=== PATIENT | female | born 1945 | race Caucasian/White ===

== ENCOUNTER 2017-08-30 00:19 | Inpatient (IN) | payer MEDICARE, BC ==
[2017-08-29 15:15] LABS: INR 1.02
[~2017-08-30] VITALS: Ht 149.9 cm; Wt 61.7 kg
[2017-08-30] VITALS (13 sets, daily range): BP systolic 98–157; BP diastolic 63–98
[~2017-08-30 00:19] MED LIST: ASCO100T15 PO; ASPI-816 PO; CALC500T6 PO; CHOL200074 PO; CIPR-344 PO; DIPH-1 PO; ESTR-26 PO; FAMO20TA28 PO; GLUC-198 PO; KRIL500C2 PO; LEVO75TA73 PO; LOSA50TA72 PO; LUTE20CA11 PO; MULT1TAB64 PO; OLME20TA PO; SPIR50TA31 PO; TRANEXAMIC AC 1000 MG/10ML SDV 1,000 MG in DEXTROSE 5% 50 ML BAG 50 ML IV ONE; VIT1CAPS29 PO; VITA-131 PO; [UNRECOGNIZED DRUG - CODE] PO
[2017-08-30] MEDS ORDERED: FAMOTIDINE 20 MG TAB PO ONE (08:20)
[2017-08-30] MEDS ORDERED: GELATIN SPONGE 12-7MM ONE (08:50)
[2017-08-30] MEDS ORDERED: THROMBIN TOP SOLN 5000INTLU VL ONE (08:50)
[2017-08-30] MEDS ORDERED: PROPOFOL EMUL(*) 10MG/ML 20 ML 40 ML ONE (08:51)
[2017-08-30] MEDS ORDERED: LIDOCAINE MPF 1% 5 ML VIAL ONE (08:51)
[2017-08-30] MEDS ORDERED: ONDANSETRON 4 MG/2 ML VIAL ONE ×2 (08:51→12:32)
[2017-08-30] MEDS ORDERED: DEXAMETHASONE SOD PHOS 10MG/ML ONE (08:51)
[2017-08-30] MEDS ORDERED: VANCOMYCIN(*) 1 GM VIAL 1 GM in NS(*) 0.9% 250 ML BAG 250 ML IVPB ONE (09:10)
[2017-08-30] MEDS ORDERED: ROCURONIUM BROM 10 MG/ML 10 ML ONE (09:54)
[2017-08-30] MEDS ORDERED: SUCCINYLCHOL CHL 100MG/5ML SYR IVP ONE (10:00)
[2017-08-30] MEDS ORDERED: PHENYLEPHRINE/NS/PF 0.4MG/10ML ONE (10:00)
[2017-08-30] MEDS ORDERED: fentaNYL CITR 100 MCG/2 ML AMP ONE ×3 (10:04→12:18)
[2017-08-30] MEDS ORDERED: LIDOCAINE/SOD BICARB 8.4% SYR ID ONE (10:35)
[2017-08-30] MEDS ORDERED: cloNIDine EPIDUR INJ 100MCG/ML 40 MCG, ROPIVACAINE 0.5% 20 ML VIAL 25 ML, EPINEPHrine H... INJ ONE (10:35)
[2017-08-30] MEDS ORDERED: NORMOSOL R SOLN(*) 1000 ML BAG 1,000 ML IV PRN (10:35)
[2017-08-30] MEDS ORDERED: MIDAZOLAM 2 MG/2 ML VIAL IVP PRN (10:35)
[2017-08-30] MEDS ORDERED: ceFAZolin 1 GM VIAL IVP ONE (10:35)
[2017-08-30] MEDS ORDERED: TRANEXAMIC AC 1000 MG/10ML SDV 1,000 MG in DEXTROSE 5% 50 ML BAG 50 ML IV ONE ×2 (10:35→10:40)
[2017-08-30] MEDS ORDERED: LACTATED RINGER 3000 ML BAG IR ONE (11:15)
[2017-08-30] MEDS ORDERED: SUGAMMADEX SOD 200 MG/2 ML SDV ONE (11:34)
[2017-08-30] MEDS ORDERED: ceFAZolin(*) 1 GM VIAL 1 GM in NS(*) 0.9% 100 ML ADDVANT BAG 100 ML IVPB ONE (11:35)
[2017-08-30] MEDS ORDERED: ONDANSETRON 4 MG/2 ML VIAL IVP PRN (12:10)
[2017-08-30] MEDS ORDERED: diphenhydrAMINE 25 MG CAP PO PRN (12:10)
[2017-08-30] MEDS ORDERED: KCL/D5LR 20 MEQ/1000 ML PREMIX 1,000 ML IV PRN (12:10)
[2017-08-30] MEDS ORDERED: NALOXONE HCL 0.4 MG/ML VIAL IVP PRN (12:10)
[2017-08-30] MEDS ORDERED: PROMETHAZINE 25 MG/ML 1 ML AMP IVP PRN (12:10)
[2017-08-30] MEDS ORDERED: FLUSH 10 ML SYR IVP PRN (12:10)
[2017-08-30] MEDS ORDERED: MORPHINE SULFATE 30 MG PCA IV PRN (12:10)
[2017-08-30] MEDS ORDERED: MAGNESIUM CITRATE 300 ML BTL PO PRN (12:10)
[2017-08-30] MEDS ORDERED: ACETAMINOPHEN 500 MG TAB PO PRN (12:10)
[2017-08-30] MEDS ORDERED: HYDROmorphone HCL 2 MG/ML SDV ONE (12:59)
[2017-08-30] MEDS ORDERED: PROMETHAZINE 25 MG/ML 1 ML AMP ONE (13:21)
--- NOTE | 2017-08-30 14:10 | RADIOLOGY IMAGING REPORT ---
[place] [facility] [place] NAME: Arlyn Centeno : 1945 MR: [id number] V: [id number] EXAM DATE: ORDERING PHYSICIAN: MEAGAN ORELLANA TECHNOLOGIST: Location: [facility] [place] Patient: Arlyn Centeno : 1945 Visit/Account:[id number] Date of Sevice: 08/30/2017 SHOULDER 1 VIEW RIGHT Indication: Postop Comparison: MRI 07/16/2017 Findings: The patient has undergone right shoulder arthroplasty, component appears well seated. No abnormaliti es are noted. Limited views of the right upper lung zone are unremarkable. Visualized right acromioclavicular joint is unremarkable. IMPRESSION: 1. Uncomplicated right TSA Report Dictated By: Inderjit Jaimes at 08/30/2017 2:06 PM Report E-Signed By: Inderjit Jaimes at 08/30/2017 2:07 PM WSN:[id number]
--- NOTE | 2017-08-30 17:58 | Hospitalist Consultation ---
History of Present Illness Requesting Physician Dr. Orellana Reason for Consult Hypertension History of Present Illness This patient was admitted for shoulder surgery. It is reported that the surgery went well and was without complication. History Problems: (1) Essential hypertension (2) Hypothyroid Home Meds Reported Medications Sodium Chloride (SODIUM CHLORIDE) 1,000 Mg Tablet.marco, 1000 MG PO QODAY 08/23/17 Famotidine (PEPCID) 20 Mg Tablet, 20 MG PO QDAY, #10 TAB 08/23/17 Losartan Potassium (LOSARTAN POTASSIUM) 50 Mg Tablet, 50 MG PO QDAY 08/23/17 Estrogen,Con/M-Progest Acet (PREMPRO 0.45-1.5 MG TABLET) 1 Each Tablet, 1 EACH PO DAILY 05/23/15 Spironolactone (SPIRONOLACTONE) 50 Mg Tablet, 50 MG PO DAILY 05/23/15 Levothyroxine Sodium (LEVOTHYROXINE SODIUM) 75 Mcg Tablet, 88 MCG PO QDAY 05/23/15 Aspirin (Children's Aspirin) 81 Mg Tab.chew, 1 TAB PO QDAY 04/26/15 Discontinued Reported Medications Vit C/Bautista & Celery Ex/Grp E (TART BAUTISTA CAPSULE) 1 Each Capsule, 1 EACH PO HS, CAPSULE 05/23/15 Krill Oil (KRILL OIL) 500 Mg Capsule, 500 MG PO DAILY, CAPSULE 05/23/15 Diphenoxylate Hcl/Atropine (LOMOTIL TABLET) 1 Each Tablet, 1 EACH PO DAILY Y for DIARRHEA, TAB 05/23/15 Olmesartan Medoxomil (BENICAR) 20 Mg Tablet, 20 MG PO DAILY 05/23/15 Multivitamin (MULTI VITAMIN DAILY) 1 Each Tablet, 1 EACH PO QDAY 04/26/15 Cholecalciferol (Vitamin D3) (VITAMIN D-3) 2,000 Unit Capsule, 2000 UNIT PO QODAY, CAPSULE 04/26/15 Ascorbic Acid (VITAMIN C) 100 Mg Tablet, 500 MG PO QDAY 04/26/15 Vitamin B Complex (VITAMIN B COMPLEX) 1 Each Tablet, 1 EACH PO QDAY 04/26/15 Calcium Carbonate (CALCIUM) Unknown Strength Tablet, PO BID 04/26/15 Lutein (LUTEIN) Unknown Strength Capsule, PO QDAY, CAPSULE 04/26/15 Glucosa Davis 2KCL/Chondroitin Davis (GLUCOSAMINE & CHONDROITIN CAP) 1 Each Capsule, 1 EACH PO QDAY, CAPSULE 04/26/15 Allergies: Coded Allergies: No Known Drug Allergies (Unverified , 08/23/17) Patient History: FH: cancer FATHER FH: diabetes mellitus Siblings x 2 Heart cancer MOTHER Hx Smoking: No Smoking Status: Never Smoker Caffeine Intake: Coffee Caffeine/Cups Per Day: 3 Hx Substance Use Disorder: No Social Drug Use: Never Review of Systems All Systems Reviewed/Normal: Yes Exam Vital Signs Vital Signs Date Time Temp Pulse Resp B/P (MAP) Pulse Ox O2 Delivery O2 Flow Rate FiO2 08/30/17 17:01 72 121/73 (89) 94 Nasal Cannula 2.0 08/30/17 13:57 97.4 16 Neuro: No Gross deficits Cardiovascular: Regular Rate and Rhythm Respiratory: Clear to Auscultation Extremities: No Edema Integumentary: No Cyanosis Medical Decision Making Data Points Result Diagram: 08/30/17 1200 Assessment and Plan Problems: (1) Essential hypertension Assessment & Plan: She is on chronic treatment with losartan and spironolactone. Both medications have been ordered with hold parameters. (2) Hypothyroid Assessment & Plan: She is on chronic treatment with Synthroid. Copies to: MEAGAN ORELLANA MD Venous Thromboembolism Antithrombotics Is Pt On Any Antithrombotics?: No Exam Sepsis Risk: No Definite Risk FUNMILAYO ANDERSON DO Aug 30, 2017 17:58
[2017-08-31 02:02] VITALS: BP 143/73
[2017-08-31 05:45] LABS: PLATELET COUNT, AUTOMATED 339 K/uL (150-450)
[2017-08-31] MEDS ORDERED: LEVOTHYROXINE SOD 0.088 MG TAB PO SCH (06:00)
[2017-08-31] MEDS ORDERED: OXYC-865 PO (07:10)
[2017-08-31] MEDS ORDERED: OXYC-823 PO (07:13)
[2017-08-31 07:52] VITALS: BP 122/66
[2017-08-31] MEDS ORDERED: LOSARTAN POTASSIUM 50 MG TAB PO SCH (09:00)
[2017-08-31] MEDS ORDERED: FAMOTIDINE 20 MG TAB PO SCH (09:00)
[2017-08-31] MEDS ORDERED: SPIRONOLACTONE 25 MG TAB PO SCH (09:00)
--- NOTE | 2017-08-31 14:34 | OPERATIVE REPORT 1 ---
EVENT DATE: August 30, 2017 SURGEON: Rohith Handley MD ANESTHESIOLOGIST: Aris Nguyen MD ANESTHESIA: General. PRODUCTION SUPPORT CONSULTANT: Lisandro Phelps PA-C PREOPERATIVE DIAGNOSIS Right shoulder degenerative joint disease. POSTOPERATIVE DIAGNOSIS Right shoulder degenerative joint disease. PROCEDURE PERFORMED Right total shoulder arthroplasty with biceps tenodesis. ESTIMATED BLOOD LOSS 100 INTRAVENOUS FLUIDS 1100 TOURNIQUET TIME None. SPECIMENS None. COMPLICATIONS None. IMPLANTS USED [employer] 40 [place] Peg Glenoid, a 10 stem, a 44 x 18 eccentric head. SUMMARY OF PROCEDURE The patient was brought into the operating room and placed on the OR table in the supine position. She was given general anesthesia and was then placed in a semi beach chair position with her right shoulder prepped and draped in the usual sterile fashion. A deltopectoral incision was taken down through skin and subcutaneous tissue. The cephalic vein was identified and taken laterally with the deltoid. The superior aspect of the pectoralis was partially released. The axillary nerve was identified and protected. I released the subscapularis and placed traction sutures. The fluid was clear. There was abundant fluid within the degenerative biceps tendon, and this was drained as well. With the joint exposed, I marked the inclination of the cut surface, and I made a cut just below the attachment of the rotator cuff. The head measured 44 mm. We placed a protective shell on this after removing the osteophytes in the periphery, released the capsule on the inferior aspect of the neck, and then retracted the head posteriorly, after which we began to release the tissues around the margin of the glenoid as well. The glenoid had a very thin shell of osteophyte around the anterior and inferior aspects, which initially I intended to preserve, but eventually I felt this was a liability and would potentially crack off afterwards, so I intentionally broke these off and got down to the venetie glenoid surface that was actually usable for support. It looked like the best size would be a 40. We marked the central point. I drilled the central peg partially and then used the guide to drill the rest of the way. We then drilled the peripheral three peg holes and did a trial. It fit nicely after having previously reamed the surface, although we intentionally did not do a lot of reaming, only enough to change the shape to match the backside of the glenoid since she had already worn quite a bit medially. My intent was to build the shoulder back up again to make it a little more lateralized like it had once been. We placed thrombin-soaked Gelfoam sponges into the three peripheral drill holes while mixing cement. Bone graft was used to pack into the fins of the [place] Peg. We then removed the Gelfoam sponges, irrigated one last time, and then injected cement into the three peripheral drill holes after which the [place] Peg Glenoid was impacted and held in position until full polymerization with excess cement removed. We then moved on to the humerus. Progressive reaming was undertaken up to 10. We then used the Brosteotome, watching for our version. After placing the trial stem, it appeared that it definitely tended to sink way too far inferior along the slope; therefore, I used bone graft from the head in a progressive fashion, getting more and more into that space, impacting as I went until I had the stem sitting where it needed to be in the center. Even with this, an eccentric head was still the best fit. We trialed a 15 and an 18. I selected the 18. We removed the trial, placed drill holes in the neck for later subscapularis augmentation, and then impacted a press-fit 10 stem with a 44 x 18 head that was eccentric to the superior aspect, slightly tipped anteriorly. With this impacted in position, I once again checked its position, and it had good inferior and posterior shift with no evidence of a tendency to dislocate. The wound was irrigated. Ropivacaine had been injected with local anesthetic peripherally around the capsule at the glenoid, and now additional medication was injected both deep and superficial. After adequate irrigation with the biceps released from the glenoid, we then tenodesed the biceps to the soft tissues and also repaired the subscapularis both with swedged on suture as well as the previously placed transosseous sutures to augment it. After this, I tested external rotation. We could easily get her out to about 25 degrees with minimal tension, so I would let them move her fairly actively. The wound was irrigated one more time before closing subcutaneous tissue with Vicryl, followed by 4-0 Monocryl, and then she was awakened and transferred to the recovery area in stable condition. LUZ ELENA
== END 2017-08-31 13:25 | disposition home or self-care (01) | DRG 483 ==
LOC: OR 00:19 → MED 13:50
PROVIDERS: ADMIT Orthopaedic Surgery Hand Surgery; ATTEND Orthopaedic Surgery Hand Surgery
PROC: 0LS30ZZ Reposition Right Upper Arm Tendon, Open Approach (ICD-10-PCS; 2017-08-30)
PROC: 0RRJ0JZ Replacement of Right Shoulder Joint with Synthetic Substitute, Open Approach (ICD-10-PCS; principal; 2017-08-30 09:36)
DX: M19.011 Primary osteoarthritis, right shoulder (principal); I10 Essential (primary) hypertension; K21.9 Gastro-esophageal reflux disease without esophagitis; E03.9 Hypothyroidism, unspecified; E78.5 Hyperlipidemia, unspecified
CPT/HCPCS: 36415; 85014; 85018; 85025; 85610; 86850; 86900; 86901; 97165; A4565; C1713; C1776; J0171; J0330; J0735; J1100; J1170; J1885; J2001; J2250; J2370; J2405; J2550; J2704; J2795; J3010; J3370; J7050; J7060

== ENCOUNTER → 2018-09-05 | Outpatient (CLI) | payer MEDICARE, BC ==
[~2018-09-05] MED LIST changes: -ASPI-816 PO; +ASPI-870 PO; -LOSA50TA72 PO; +LOSA50TA80 PO; +OLM20 PO; -OLME20TA PO; +OXYC-823 PO; +OXYC-865 PO; +SODI100037 PO; -SPIR50TA31 PO; +SPIR50TA33 PO; -TRANEXAMIC AC 1000 MG/10ML SDV 1,000 MG in DEXTROSE 5% 50 ML BAG 50 ML IV ONE; -[UNRECOGNIZED DRUG - CODE] PO
--- NOTE | 2018-09-08 10:23 | RADIOLOGY IMAGING REPORT ---
FACILITY: [facility] [place] PATIENT NAME: LOW TURNER : [id number] MR: [id number] V: [id number] EXAM DATE: ORDERING PHYSICIAN: JOAN WASHBURN TECHNOLOGIST: Jeannie Olmedo PROCEDURE:BILATERAL DIGITAL SCREENING MAMMOGRAM WITH CAD ASSISTED INTERPRETATION & 3D TOMOSYNTHESIS COMPARISON:Prior mammograms 08/02/17, 06/28/16, 05/06/15, 01/26/14, 12/18/12. INDICATIONS:SCREENING FINDINGS: The breasts are heterogeneously dense which can obscure small masses. The parenchymal pattern has remained stable allowing for difference in mammographic technique & patient positioning. DIAGNOSTIC CATEGORY 1--NEGATIVE. RECOMMENDATIONS: ROUTINE MAMMOGRAM AND CLINICAL EVALUATION. IMPRESSION: BIRADS 1: Negative. No significant abnormality is seen. Dictated by: Malina Lemus M.D. on 09/05/2018 at 13:51 Transcribed by: LARRY on 09/05/2018 at 13:59 Approved by: Malina Lemus M.D. on 09/08/2018 at 10:22 [facility]
== END ==
LOC: MAMO 04:25
PROVIDERS: ATTEND Nurse Practitioner Family
DX: Z12.31 Encounter for screening mammogram for malignant neoplasm of breast (principal)
CPT/HCPCS: 77063; 77067